=== PATIENT | male | born 1940 | race Caucasian/White ===

== ENCOUNTER → 2016-05-21 | Outpatient (CLI) | payer OTHER, BC ==
--- NOTE | 2016-05-22 06:00 | PAP/PSG TECHNICIAN REPORT ---
[facility] Lithographic General Worker Polysomnogram Report Study name: None Report date: 05/22/2016 Study date: 05/21/2016 Referring Physician: Lynnette Anne M.D. Name: ABIMBOLA DEGROOT Interpreting Physician: Zachariah Anne M.D. Date of : 1940 Lithographic General Worker: ALEXI Saucedo. Sex: Male Age: 75 StudyType: PSG Weight: 185 lbs Height: 75 years, Height 5' 4.5" Neck Circum: 15.1 inches BMI: 31.26 Medications: Lipitor 10mg, Proscar 5mg, Norvasc 5mg, Hygroton 25mg, Glucophage 500mg, Diabeta 2.5mg, Timolol Maleate 10mg, Losartan 100mg, ASA 325mg, Multivitamin Patient History Study started on room air with ETCO2 monitoring in room #6. 75 yr old male here tonight for a possible split psg. He complains of EDS. He has HTN and diabetes. He wakes often to use the restroom. His ESS=2/24. Neck circ=15.1inches. Parameters Monitored NPSG: E1-M2, E2-M1, Fp1-M2, Fp2-M1, F3-M2, F4-M2, F4-M1, C3-M2, C4-M2, C4-M1, O1-M2, O2-M2, O2-M1, T3-M2, T4-M1, P3-M2, P4-M1, CHIN1, CHIN2, HR, EKG, Legs, PFLOW, SNOR, FLOW, CFLOW, Tidal Volume, THOR, ABDO, SpO2, PLTH, CPRESS, ETCO2 Wave, ETCO2, pH Sleep Architecture Sleep Stages Time at Lights Off 9:04:07 PM STAGES Time (min.) TST (%) Time at Lights On 5:19:37 AM Wake 63.0 -- Total Recording Time (TRT) 495.50 min. N1 38.5 9 Total Sleep Period (TSP) 484.0 min. N2 349.0 81 Total Sleep Time (TST) 432.5min. N3 11.5 3 Awake Time 63.0 min. REM 33.5 8 Wake after Sleep Onset 51.5 min. Sleep Efficiency (SE) 87 % Sleep Onset Latency (MIKE) 11.5 min. Number of Stage 1 Shifts None Awakenings 38 Stage Changes 172 Number of REM periods 1 REM 33.5 8 REM Latency 392.5 min. NREM 399.0 92 Body Position Analysis Supine Right Left Side Prone Vertical Total Sleep Time (min.) 107.0 122.2 234.0 356.16 0.0 0.0 Total Sleep Time (%) 18% 28% 54% 82 0% N/A% Total Sleep Time REM (min.) 0.0 0.0 33.5 None 0.0 0.0 Total Sleep Time NREM (min.) 76.3 122.2 200.5 None 0.0 0.0 Intermittent Wake (min.) 30.6 15.4 16.9 None 0.0 0.0 Total Sleep Period (%) 20% None None None None None Arousals Myoclonus (PLM) * Events Count Index Events Count Index Spontaneous 28 4 Events Awake (PLMW) 117 111.4 Respiratory 20 3.1 Events Asleep w/ Arousal (PLMA) 90 12.5 PLM 87 12 Events Asleep w/o Arousal (PLMS) 507 70.3 Snoring 4 1 Total Asleep 597 82.8 Total 139 19 Total 714 86 Respiratory Analysis * CA OA MA CH H RERA Total Count 0 0 0 0 63 2 63 Index 0.0 0.0 0.0 0 8.7 0 9.0 Mean Duration 0.0 0.0 0.0 0.00 19.1 12.4 18.9 Longest Duration 0.0 0.0 0.0 0.00 0.0 13.1 50.0 Respiratory Event Summary Total Supine ~Supine Right Left Prone REM NREM Apneas Count 0 0 0 0 0 N/A 0 0 Index 0.0 0 0 0.0 0.0 N/A 0 0 Hypopneas (4% Desat) Count 63 28 35 0 35 N/A 7 56 Index 8.7 22.0 6 0.0 9.0 N/A 12.5 8.4 Apneas & All Hypopneas Count 63 28 35 0 35 N/A 7 56 Index 8.7 22 6 0 9 N/A 12.5 8.4 Respiratory Events (Supervisor [employer]uming+All Hyp+RERA) Count 63 28 37 0 37 N/A 7 56 Index 9.0 22 6 0.0 9.5 N/A 12.5 8.7 Respiratory Related Arousal Count 20 28 8 0 8 N/A 3 19 Index 3.1 11 1 0 2 N/A 5 3 Snoring Analysis Supine Right Left Prone REM NREM Total Snore duration 2.1 min Snores count 49 13 16 N/A 3 75 78 Snore mean duration 1.7 Sec Snores index 39 6 4 N/A 5.4 11.3 10.8 TST with snoring (%) 0.5% SpO2 Analysis Total REM NREM Awake <50% 0.0 min. 0.0 min. 0.0 min. 0.0 min. 51 - 60% 0.0 min. 0.0 min. 0.0 min. 0.0 min. 61 - 70% 0.0 min. 0.0 min. 0.0 min. 0.0 min. 71 - 80% 0.0 min. 0.0 min. 0.0 min. 0.0 min. 81 - 90% 183.3 min. 23.9 min. 144.4 min. 15.0 min. 91 - 100% 312.0 min. 9.6 min. 254.6 min. 47.7 min. Average 91 90 91 92 Minimum SpO2 83 83 85 85 Desaturation Event Index 13.2 16.1 12.5 16.2 # Desat. Events below 89% 43 5 35 3 Time(%) with Saturation below 89% 6.3 1.8 4.2 0.2 Time(min.) with Saturation below 89% 31.3 9.0 21.0 1.2 Heart Rate Analysis End Tidal CO2 Analysis Min (bpm) Max (bpm) Average (bpm) TSP (mins) % of TSP Awake 53 72 62 Above 55 mmHg 0.0 0.0 NREM 52 67 59 50-55 mmHg 0.0 0.0 REM 54 64 59 45-50 mmHg 4.8 1.1 Overall 52 67 59 40-45 mmHg 235.0 54.3 35-40 mmHg 163.1 37.7 30-35 mmHg 21.8 5.0 Average ETCO2 0.3 Supplemental O2 Values Minimum O2 level: None Value Start Time End Time Lithographic General Worker Comments Mr. Degroot slept in the right, left and supine positions. Cardiac arrhythmia and PLM's noted. No bruxism noted. Snoring was noted and scored as a 0.5 on a scale of 1 through 5. (0=no snoring, 5=snoring loud enough to be heard through a closed door or down the rose way) He did not use the restroom during the night. He stated that he did not sleep as well as when at home. The final report will be interpreted and signed by a sleep physician. The completed physician report will then be placed in the patient medical record. Therapy (cm H2O) 0 TIB (min.) 495.5 TST (min.) 432.5 Sleep Onset (min.) 11.5 REM Onset From Sleep (min.) 392.5 Sleep Efficiency % 87 Wakefulness (%) 13 Wakefulness (min.) 63.0 NREM 1 (%) 9 NREM 1 (min.) 38.5 NREM 2 (%) 81 NREM 2 (min.) 349.0 NREM 3 (%) 3 NREM 3 (min.) 11.5 REM (%) 8 REM (min.) 33.5 # Arousals 139 Arousal Index 19 # Snore 78 Snore Index 10.8 AHI 8.7 AHI Supine 22 AHI Non-Supine 6 NREM AHI 8.4 REM AHI 12.5 RDI 9.0 # Obstructive Apnea 0 # Central Apnea 0 # Mixed Apnea 0 # Hypopneas 63 RERAs 2 Total Respiratory Events 69 Time Below SpO2 89% (min.) 30.0 Mean NREM SpO2 (%) 91 Mean REM SpO2 (%) 90 Mean Sleep SpO2 (%) 91 Min NREM SpO2 (%) 85 Min REM SpO2 (%) 83 Position Supine (min.) 107.0 Position Non-supine (min.) 356.2 LM Index Sleep 82.8 LM Index NREM 89.0 LM Index REM 9.0 Mean Heart Rate (bpm) 59 Min Heart Rate (bpm) 52
--- NOTE | 2016-05-26 14:18 | POLYSOMNOGRAPH REPORT ---
REFERRING PERSON: Dr. Liberty Anne. SHIP CARPENTER: Lisa Kumar. Mr. Degroot is a 75-year-old male sent for a baseline sleep study. He complains of excessive daytime sleepiness. He has a history of snoring and diabetes. His [place] sleepiness scale score on the evening of this study is 2. BMI is 31.26. Following the technical and digital specifications of the [place] [employer] (AASM) a standard diagnostic polysomnogram was performed monitoring EEG, EOG, EMG (chin and leg deviations), oxygen saturation, body position, digital video, respiratory effort and airflow. The sleep Stage and event scoring was based on the AASM Manual for the Scoring of Sleep and Associated Events 2007 edition. Apneas are defined as a drop in the peak thermal sensor excursion by >90% of baseline for at least 10 seconds. Hypopneas were scored using the 4% oxygen desaturation rule (4A-[employer]) and a decrease in the nasal pressure excursions by >30% of baseline for at least 10 seconds. Respiratory effort-related arousal (RERA's) is defined as a sequence of breaths lasting at least 10 seconds characterized by increasing respiratory effort or flattening of the nasal pressure waveform leading to an arousal from sleep when the sequence of breaths does not meet criteria for an apnea or hypopnea. Apnea Hypopnea index (AHI) is defined as the number of apneas and hypopneas occurring in an hour of sleep. Respiratory disturbance index (RDI) is defined as the number of apneas, hypopneas, and RERA's occurring in an hour of sleep. Mr. Corrigans total sleep period time was 484 minutes. Total sleep time was 432.5 minutes. Sleep efficiency was 87%. Latency to sleep onset was 11.5 minutes with wake after sleep onset of 51.5 minutes. Total non-REM sleep time was 399 minutes. He spent 9% of that time in N1 sleep, 81% in N2 sleep and 3% in N3 sleep. REM latency was 392.5 minutes. Total REM sleep time was 33.5 minutes or 8% of total sleep time. There were 139 cortical arousals from sleep. 28 of these arousals were spontaneous, 20 were due to respiratory events, 87 due to periodic limb movements of sleep and 4 were due to snoring. There were 597 periodic limb movements of sleep. Limb movement index was 82.8, limb movement with arousal index was 12.5. There were no central obstructive or mixed apneas on this test. There were 63 hypopnea and 2 RERA. Apnea-hypopnea index was 8.7 consistent with mild sleep apnea. 78 snoring events were recorded. Total sleep time with snoring was 0.5%. Mean saturation was 91% with desaturations to 83%. Saturations were less than 89% for 31.3 minutes of sleep time. Occasional PACs were noted on EKG monitoring. Heart rates ranged from a low of 52 beats per minute to a high of 67 beats per minute during sleep. End tidal CO2s were between 40 and 45 mmHg for 54.3% of total sleep period time, between 35 and 40 mmHg for 37.7%, between 30 and 35 mmHg for 5% of total sleep period time. IMPRESSION AND PLAN: 75-year-old male with evidence of mild sleep apnea and significant nocturnal hypoxemia on this sleep study. 1. This patient would likely benefit from positive airway pressure therapy. He should return to the sleep lab for a full night titration and then based on these results be started on equipment at home. A download from his machine can be reviewed in 1 month both to check compliance as well as AHI and further pressure adjustments can occur at that time. 2. Alternatively, this patient could be started on auto titrating CPAP with pressures of 5-15 cm. In 1 month, a download can be reviewed and he could be set to optimal pressure. Nocturnal oximetry can be performed on ideal pressure to ensure his hypoxemia resolves with positive airway pressure therapy alone. 3. Should this patient be unwilling or unable to tolerate CPAP therapy, he may benefit from a referral to ear, nose and throat or dental medicine/oral surgery (if appropriate) to discuss alternative treatments for sleep disordered breathing.
== END | disposition home or self-care (01) ==
LOC: C.NEUR 20:00
PROVIDERS: ATTEND Family Medicine
DX: R06.83 Snoring (principal); I16.9 Hypertensive crisis, unspecified; F51.11 Primary hypersomnia; R35.1 Nocturia